=== PATIENT | male | born 1965 | race Caucasian/White ===

== ENCOUNTER 2020-11-30 13:21 | Emergency (ER) | payer SELFPAY ==
[~2020-11-30] VITALS: Ht 180.3 cm; Wt 97.7 kg
--- NOTE | 2020-11-30 14:04 | PHYS DOC ---
Past Medical History Past Medical History: Hypertension Smoking Status: Current Every Day Smoker Alcohol Use: None Drug Use: None General Adult EDM: Chief Complaint: SORE THROAT HPI: HPI: Patient is a 54-year-old homeless male with only known medical history of hypertension presenting for "I am just sick man". States he has had URI symptoms for past x1 week, reports he now has generalized body aches and occasionally a productive cough. He has been nauseous and had poor p.o. food and drink intake. States he received x1 dose and is now fully vaccinated against COVID-19, denies it was [employer] but another brand? Admits to recently becoming homeless, ran out of home HTN meds which he states is a co mbined water pill and something else 1 week ago. Denies any known fever. Presenting here for COVID-19 test and symptom improvement. Admits ongoing tobacco abuse, occasional alcohol and illicit drug abuse but reports "I have been clean for a while ". Review of Systems: Review of Systems: Fourteen body systems of review of systems have been reviewed. See HPI for pertinent positives and negative responses, other pena all other systems are negative, non-pertinent or non-contributory Heart Score: C/O Chest Pain: No HEART Score for Chest Pain: HEART Score for Chest Pain Response (Comments) Value History Slighlty/Non-Suspicious 0 ECG Normal 0 Age >45 - < 65 1 Risk Factors 1 or 2 Risk Factors 1 Troponin < Normal Limit 0 Total 2 Risk Factors: Risk Factors: DM, Current or recent (<one month) smoker, HTN, HLP, family history of CAD, obesity. Risk Scores: Score 0 - 3: 2.5% MACE over next 6 weeks - Discharge Home Score 4 - 6: 20.3% MACE over next 6 weeks - Admit for Clinical Observation Score 7 - 10: 72.7% MACE over next 6 weeks - Early Invasive Strategies Current Medications: Current Medications Medications (Trade) Dose Ordered Sig/Cesia Start Time Stop Time Status Last Admin Dose Admin Acetaminophen (Tylenol) 1,000 mg 1X ONCE 11/30/20 15:30 11/30/20 15:47 DC 11/30/20 16:06 1,000 MG Sodium Chloride 1,000 ml @ 1,000 mls/hr 1X ONCE 11/30/20 15:45 11/30/20 16:44 11/30/20 16:06 1,000 MLS/HR Physical Exam: PE: Constitutional: Age-appropriate, nontoxic in appearance and ambulatory in no acute distress HENT: Normocephalic, atraumatic, bilateral external ears normal, oropharynx dry, no oral exudates, nose normal. Eyes: PERRLA, EOMI, conjunctiva normal, no discharge. Neck: Normal range of motion, no tenderness, supple, no stridor. Cardiovascular: Heart rate tachycardic, sinus rhythm, no murmurs rubs or gallops Lungs & Thorax: No respiratory distress, accessory muscle use or splinting but patient does have crackles in bilateral lung martinez Abdomen: Bowel sounds normal, soft, no tenderness, no masses, no pulsatile masses. Nonsurgical abdomen, no peritoneal signs Skin: Warm, dry, no erythema, no rash. Back: No tenderness, no CVA tenderness. Extremities: No tenderness, no cyanosis, no clubbing, ROM intact, no edema. Neurologic: Alert and oriented X 3, grossly normal motor & sensory function, no focal deficits noted. Psychologic: Anxious affect and mood, pressured speech Current Patient Data: Labs: Laboratory Tests Test 11/30/20 14:10 11/30/20 14:55 Urine Collection Type Unknown Urine Color Yellow Urine Clarity Clear Urine pH 6.0 Urine Specific [place] 1.010 Urine Protein Negative mg/dL Urine Glucose (UA) Negative mg/dL Urine Ketones (Stick) Negative mg/dL Urine Blood Negative Urine Nitrite Negative Urine Bilirubin Negative Urine Urobilinogen Dipstick 0.2 mg/dL Urine Leukocyte Esterase Negative Urine RBC 0 /HPF Urine WBC 0 /HPF Urine Squamous Epithelial Cells Few /LPF Urine Bacteria 0 /HPF Urine Mucus Slight /LPF Urine Opiates Screen Neg Urine Methadone Screen Neg Urine Barbiturates Neg Urine Phencyclidine Screen Neg Urine Amphetamine/Methamphetamine Neg Urine Benzodiazepines Screen Neg Urine Cocaine Screen Neg Urine Cannabinoids Screen Neg Urine Ethyl Alcohol Neg White Blood Count 14.0 x10^3/uL Red Blood Count 4.81 x10^6/uL Hemoglobin 14.2 g/dL Hematocrit 42.4 % Mean Corpuscular Volume 88 fL Mean Corpuscular Hemoglobin 30 pg Mean Corpuscular Hemoglobin Concent 34 g/dL Red Cell Distribution Width 13.3 % Platelet Count 209 x10^3/uL Neutrophils (%) (Auto) 85 % Lymphocytes (%) (Auto) 7 % Monocytes (%) (Auto) 8 % Eosinophils (%) (Auto) 0 % Basophils (%) (Auto) 0 % Neutrophils # (Auto) 11.8 x10^3/uL Lymphocytes # (Auto) 0.9 x10^3/uL Monocytes # (Auto) 1.2 x10^3/uL Eosinophils # (Auto) 0.0 x10^3/uL Basophils # (Auto) 0.0 x10^3/uL Sodium Level 136 mmol/L Potassium Level 4.3 mmol/L Chloride Level 99 mmol/L Carbon Dioxide Level 29 mmol/L Anion Gap 8 Blood Urea Nitrogen 11 mg/dL Creatinine 1.1 mg/dL Estimated GFR (Cockcroft-Gault) 69.5 BUN/Creatinine Ratio 10 Glucose Level 97 mg/dL Lactic Acid Level 1.1 mmol/L Calcium Level 8.8 mg/dL Total Bilirubin 0.4 mg/dL Aspartate Amino Transf (AST/SGOT) 19 U/L Alanine Aminotransferase (ALT/SGPT) 30 U/L Alkaline Phosphatase 113 U/L Troponin I Quantitative < 0.017 ng/mL Total Protein 7.2 g/dL Albumin 3.6 g/dL Albumin/Globulin Ratio 1.0 Ethyl Alcohol Level < 10 mg/dL Current Medications Medications (Trade) Dose Ordered Sig/Cesia Route PRN Reason Start Time Stop Time Status Last Admin Dose Admin Acetaminophen (Tylenol) 1,000 mg 1X ONCE PO 11/30/20 15:30 11/30/20 15:47 DC 11/30/20 16:06 1,000 MG Sodium Chloride 1,000 ml @ 1,000 mls/hr 1X ONCE IV 11/30/20 15:45 11/30/20 16:44 11/30/20 16:06 1,000 MLS/HR Vital Signs: Vital Signs Date Time Temp Pulse Resp B/P (MAP) Pulse Ox O2 Delivery O2 Flow Rate FiO2 11/30/20 14:00 100.2 96 18 155/108 97 Room Air 100.2 Vital Signs Date Time Temp Pulse Resp B/P (MAP) Pulse Ox O2 Delivery O2 Flow Rate FiO2 11/30/20 14:00 100.2 96 18 155/108 97 Room Air 100.2 EKG: EKG: EKG ordered and interpreted by myself at 1410 hrs. as sinus rhythm at 87 bpm, unremarkable intervals, no axis deviation, no acute ischemic findings, no STEMI Radiology/Procedures: Radiology/Procedures: EXAMINATION: XR CHEST 1V CLINICAL HISTORY: Right-sided crackles on physical exam EXAM DATE/TIME: 11/30/2020 2:16 PM COMPARISON: None FINDINGS: Lines, Tubes, and Devices: None. Cardiomediastinal Silhouette: Normal heart size. Lungs and Pleura: No evidence of focal airspace consolidation or pleural effusion. Questionable mild reticular opacities in the lower lung zones. Bones and Soft Tissues: Degenerative changes of the thoracic spine. IMPRESSION: Questionable mild interstitial opacities in the lower lung zones, possibly chronic. There is otherwise no evidence of acute cardiopulmonary abnormality. Electronically signed by: Sean Montoya DO (11/30/2020 2:35 PM) [facility] Course & Med Decision Making: Course & Med Decision Making ABCs unremarkable. I disclosed entirety of ER findings and discussed most likely diagnosis of atypical pneumonia versus COVID-19 and patient who I suspect has not been fully vaccinated for COVID-19. Joint decision made to start antibiotic therapy, patient tolerated azithromycin while in ER with subsequent prescription written. Is also asking for a written prescription of lisinopril, given that this is a chronic medication for him I feel this is appropriate. I stressed need for close outpatient follow-up to review today's ER visit and gave him resources on the local area as access to care given his new status without insurance is a barrier. Strict return precautions were also discussed at length with good understanding by patient. Patient voiced understanding and agreement with the plan. Patient knows to come back for repeat evaluation if concerning s igns or symptoms present prior to outpatient follow-up. Hemodynamically stable, ambulatory and well-appearing at time of disposition. Marilou Disclaimer: Marilou Disclaimer: This electronic medical record was generated, in whole or in part, using a voice recognition dictation system. Departure Departure Impression: Primary Impression: Atypical pneumonia Additional Impressions: Person under investigation for COVID-19 HTN (hypertension) Disposition: HOME / SELF CARE / HOMELESS Condition: STABLE Additional Instructions: You were seen for headache, cough, generalized body aches, and possible infection with COVID-19. Your physical exam was reassuring. Your chest x-ray was concerning for potential developing pneumonia. We tested you for COVID-19 but this test does not come back for 1 to 2 days. In the meantime you need to quarantine yourself at home away from all other individuals, especially those who are elderly or have any other chronic health issues or an immunocompromised status. You should return to the ED if you develop worsening cough, shortness of breath, chest pain, or any other new or concerning symptoms. Alternate Tylenol and ibuprofen as needed for body aches and pain. If your test does come back positive you need to quarantine yourself for 10 days until symptom-free. You should make sure to drink plenty of fluids and get plenty of rest. Scripts Lisinopril (LISINOPRIL) 10 Mg Tablet 1 TAB PO DAILY for HYPERTENSION, #30 TAB 5 Refills Prov: DEONNA SCHULTE DO 11/30/20 Azithromycin (AZITHROMYCIN TABLET) 250 Mg Tablet 250 MG PO DAILY for ANTI-BIOTIC, #4 TAB 0 Refills Prov: DEONNA SCHULTE DO 11/30/20 DEONNA SCHULTE DO Nov 30, 2020 14:04
[2020-11-30 14:26] LABS: BILIRUBIN,URINE NEGATIVE (NEG); CLARITY,URINE CLEAR; COLOR,URINE YELLOW; NITRITE,URINE NEGATIVE (NEG); PROTEIN,URINE NEGATIVE (NEG-TRACE); UROBILINOGEN,URINE 0.2 mg/dL (0.2 mg/dL)
[2020-11-30 14:29] LABS: BARBITURATES NEG (NEG); BENZODIAZEPINES NEG (NEG); CANNABINOIDS NEG (NEG); COCAINE NEG (NEG); METHADONE NEG (NEG); OPIATES NEG (NEG); PHENCYCLIDINE NEG (NEG)
[2020-11-30 14:30] LABS: AMPHETAMINE/METHAMPHETAMINE NEG (NEG)
[2020-11-30 14:34] LABS: BACTERIA,URINE 0 /HPF (0-FEW); RBC,URINE 0 /HPF (0-2); WBC,URINE 0 /HPF (0-4)
--- NOTE | 2020-11-30 14:37 | RAD ---
EXAMINATION: XR CHEST 1V CLINICAL HISTORY: Right-sided crackles on physical exam EXAM DATE/TIME: 11/30/2020 2:16 PM COMPARISON: None FINDINGS: Lines, Tubes, and Devices: None. Cardiomediastinal Silhouette: Normal heart size. Lungs and Pleura: No evidence of focal airspace consolidation or pleural effusion. Questionable mild reticular opacities in the lower lung zones. Bones and Soft Tissues: Degenerative changes of the thoracic spine. IMPRESSION: Questionable mild interstitial opacities in the lower lung zones, possibly chronic. There is otherwis e no evidence of acute cardiopulmonary abnormality. Electronically signed by: Sean Montoya DO (11/30/2020 2:35 PM) MICHELL
[2020-11-30 15:16] LABS: BASO % 0 % (0-3); EOS % 0 % (0-3); HEMATOCRIT 42.4 % (39.0-53.0); HEMOGLOBIN 14.2 g/dL (13.0-17.5); LYMPH # 0.9 x10^3/uL (1.0-4.8); LYMPH % 7 % (24-48); MEAN CORPUSCULAR HEMOGLOBIN 30 pg (25-35); MEAN CORPUSCULAR HGB CONC 34 g/dL (31-37); MEAN CORPUSCULAR VOLUME 88 fL (79-100); MONO # 1.2 x10^3/uL (0.0-1.1); MONO % 8 % (0-9); NEUT # 11.8 x10^3/uL (1.8-7.7); NEUT % 85 % (31-73); PLATELET COUNT 209 x10^3/uL (140-400); RED BLOOD COUNT 4.81 x10^6/uL (4.30-5.70); RED CELL DISTRIBUTION WIDTH 13.3 % (11.5-14.5)
[2020-11-30] MEDS ORDERED: ACETAMINOPHEN 500 MG TABLET PO ONE (15:30)
[2020-11-30 15:37] LABS: CALCIUM 8.8 mg/dL (8.5-10.1); CREATININE 1.1 mg/dL (0.7-1.3); GFR 69.5; POTASSIUM 4.3 mmol/L (3.5-5.1)
[2020-11-30] MEDS ORDERED: IV NORMAL SALINE 1000ML BAG 1,000 ML IV ONE (15:45)
[2020-11-30 15:49] LABS: ALBUMIN 3.6 g/dL (3.4-5.0); TOTAL BILIRUBIN 0.4 mg/dL (0.2-1.0); TOTAL PROTEIN 7.2 g/dL (6.4-8.2)
[2020-11-30] MEDS ORDERED: LISI10TA16 PO (16:17)
[2020-11-30] MEDS ORDERED: AZIT250T6 PO (16:17)
--- NOTE | 2020-11-30 16:27 | EKG ---
[facility] [address] [place] [address] Test Date: 2020-11-30 Test Time: 14:54:19 Pat Name: EMI ROJAS Department: Room: Gender: M [employer] Stack [employer] Developer: : 1965 Requested By: DEONNA SCHULTE Order Number: [id number] Reading MD: Kalin Red Measurements Intervals [place] Rate: 87 P: 18 AR: 176 QRS: 28 QRSD: 66 T: 62 QT: 356 QTc: 434 Interpretive Statements SINUS RHYTHM T ABNORMALITY IN HIGH LATERAL LEADS ABNORMAL ECG RI6.01 No previous ECG available for comparison Electronically Signed On 12-01-2020 11:48:38 CDT by Kalin Red
[2020-11-30] MEDS ORDERED: LISINOPRIL 10 MG TABLET PO ONE (16:30)
[2020-11-30] MEDS ORDERED: AZITHROMYCIN 250 MG TABLET. PO ONE (16:30)
[2020-11-30 17:00] VITALS: BP 155/85
--- NOTE | 2020-12-02 15:40 | NUR ---
IP Attempted to contact pt concerning covid results. No answer, no voicemail.
== END 2020-11-30 17:29 | disposition home or self-care (01) ==
LOC: ER 13:21
DX: J18.9 Pneumonia, unspecified organism (principal); Z20.822 Contact with and (suspected) exposure to COVID-19; I10 Essential (primary) hypertension; F17.200 Nicotine dependence, unspecified, uncomplicated; Z59.0 Homelessness
CPT/HCPCS: 36415; 71045; 80053; 80307; 81001; 83605; 84484; 85025; 93005; 96360; 99285; G0480; J7030; U0003; U0005